=== PATIENT | female | born 1995 | race Two or more races ===

== ENCOUNTER 2016-05-09 11:20 | Emergency (ER) | payer OTHER ==
[2016-05-09 11:40] VITALS: RESP 18; TEMP 98; O2SAT 97
[2016-05-09 11:48] LABS: COLOR YELLOW; LEUKOCYTE ESTERASE,URINE NEGATIVE (NEGATIVE); NITRITE,URINE NEGATIVE (NEGATIVE); PH,URINE 7.5 (5.0-7.5)
[2016-05-09 13:15] LABS: % IMMATURE GRANULYOCYTES 0.5 % (0.0-1.1); ABSOLUTE IMMATURE GRANULOCYTES 0.05 10^3/uL (0.00-0.10); ADD DIFF? NO; ADD MORPH? NO; ADD SCAN? NO; ATYPICAL LYMPHOCYTE FLAG 10 (0-99); FRAGMENT RBC FLAG 0 (0-99); HEMATOCRIT 42.7 % (38.0-47.0); HEMOGLOBIN 15.2 g/dL (12.6-16.3); LEFT SHIFT FLG 0 (0-99); LIPEMIA HEMOLYSIS FLAG 90 (0-99); MEAN CELL HEMOGLOBIN 31.3 pg (27.9-34.1); MEAN CELL HEMOGLOBIN CONCENTR. 35.6 g/dL (32.4-36.7); MEAN PLATELET VOLUME 9.8 fL (8.7-11.7); PLATELET CLUMPS FLAG 10 (0-99); PLATELET COUNT 341 10^3/uL (150-400); RED BLOOD CELL COUNT 4.85 10^6/uL (4.18-5.33); RED CELL DISTRIBUTION WIDTH 12.7 % (11.5-15.2)
--- NOTE | 2016-05-09 13:18 | US ---
Transabdominal and Transvaginal Early Obstetric Ultrasound History: Pelvic pain for 8 to 10 days with no vaginal bleeding, positive test. LMP of 2015 with estimated gestational age by LMP of 6 weeks 0 days with EDC of January 02, 2017. Comparison: None available. Findings: There is an intrauterine gestational sac with a mean sac diameter of 9 mm, corresponding to an estimated gestational age of 5 weeks 4 days and EDC of January 05, 2017. A yolk sac is visible. A pole is not visible. The uterus measures 8.1 x 6.1 x 4.3 cm. The right ovary measures 2.4 x 1.9 x 2.9 cm and the left ovary measures 5.0 x 5.0 x 5.7 cm. There is a 4.5 x 3.5 x 5.0 cm cyst in the left ovary with a probable single thin internal septation. Normal ar terial blood flow is documented to both ovaries by Doppler ultrasound. There is trace free fluid. Impression: 1. Intrauterine gestational sac with mean sac diameter corresponding to an estimated gestational age of 5 weeks 4 days. 2. 5 cm left ovarian cyst with a single thin internal septation. This is almost certainly benign and can be followed at the time of the patient's subsequent OB ultrasounds. Findings discussed with Carla Feldman answering for Haylie Rosin today at 1313 hours.
[2016-05-09 13:28] LABS: ANION GAP 13 mEq/L (8-16); CALCIUM 10.4 mg/dL (8.5-10.4); CARBON DIOXIDE 20 mEq/l (22-31); CHLORIDE 108 mEq/L (97-110); CREATININE 0.4 mg/dL (0.6-1.0); GLOMERULAR FILTRATION RATE > 60; GLUCOSE 90 mg/dL (70-100); POTASSIUM 3.7 mEq/L (3.5-5.2); SODIUM 141 mEq/L (134-144)
--- NOTE | 2016-05-09 14:18 | UCPHY ---
H & P Patient Type: New Smoking Status: Never smoked Time Seen by Provider: 05/09/16 11:41 HPI/ROS: CHIEF COMPLAINT: Abdominal pain HISTORY OF PRESENT ILLNESS: 21-year-old female presents to urgent care by private vehicle complaining of lower abdominal pain for last 7-10 days. Patient states her last normal menstrual period was March 28, 2016. She does report some breast soreness. She has no chest pain or difficulty breathing. No pain in her upper or lower extremities. No URI symptoms. No reported trauma. She has not had any vaginal bleeding or spotting. Denies dysuria, urgency or frequency with urination. She has never been in the past. REVIEW OF SYSTEMS: Constitutional: No fever, no chills. Eyes: No double or blurry vision. ENT: No sore throat. Respiratory: No cough, no shortness of breath. Cardiac: No chest pain. Gastrointestinal: Abdominal pain as above. No vomiting or diarrhea. Genitourinary: No dysuria. Musculoskeletal: No neck or back pain. Skin: No rashes. Neurological: No headache. (Haylie Akers) Past Medical/Surgical History: Negative (Haylie Akers) Social History: and lives in [place] (Haylie Akers) Physical Exam: General Appearance: Alert, no distress. Afebrile. No apparent distress. at bedside. Eyes: Pupils equal and round. Extraocular motions are all intact. ENT: Mouth: Mucous membranes moist. Respiratory: No wheezing, rhonchi, or rales, lungs are clear to auscultation. Cardiovascular: Regular rate and rhythm. Gastrointestinal: Abdomen is soft and nontender, no masses, no rebound or guarding, bowel sounds normal. No CVA tenderness bilaterally. Genitourinary: Deferred Neurological: Alert and oriented x 3, cranial nerves II through XII grossly intact Skin: Warm and dry, no rashes. Musculoskeletal: Nontender to palpate along the cervical, thoracic or lumbar spine. Neck is supple. Extremities: Full range of motion and no peripheral edema. Psychiatric: Patient is oriented X 3, there is no agitation. (Haylie Akers) Constitutional: Initial Vital Signs Temperature (C) 36.6 C 05/09/16 11:38 Heart Rate 85 05/09/16 11:38 Respiratory Rate 18 05/09/16 11:38 Blood Pressure 112/62 05/09/16 11:38 O2 Sat (%) 97 05/09/16 11:38 O2 Delivery Mode Room Air Allergies/Adverse Reactions: No Known Allergies Allergy (Unverified 05/09/16 11:38) Home Medications: Medication Instructions Recorded NK [No Known Home Meds] 05/09/16 Medical Decision Making - Diagnostics Imaging: Pelvic ultrasound reveals 5 week 4 day gestational sac without evidence of pole. This was reported by Dr. Charles Angeles. (Haylie Akers) ED Course/Re-evaluation: 21-year-old female presents to Urgent Care with lower abdominal discomfort. She feels that the pain is actually improved some. She did not take a home test. Urine test was positive. Urinalysis reveals no signs of infection. Her CBC was within normal limits. Chemistries were normal. Her quantitative HCG was over 5600. Pelvic ultrasound reveals 5 week 4 day to station all sac without evidence of pole. The case was discussed with Dr. Carla Feldman, secondary supervising physician, who did not directly evaluate the patient but agrees with treatment and plan. Dr. Carla Feldman spoke with Dr. Abbey Doshi and the patient will have a repeat quantitative HCG on Saturday, in 2 days. She will schedule appointment with Dr. Abbey Doshi for follow-up. This was discussed with the patient and her at bedside who verbalized understanding and agreed. She was given strict instructions to return or go to the emergency department if she developed worsening abdominal pain, vaginal bleeding, if she felt faint, or if she felt worse in any way. (Haylie Akers) The patient wasevaluatedand managed by themidlevel provider. Idiscussed the patient's presentation and course with thephysicianassistantor nurse practitionerand agree with theevaluation. My co-signature indicates that I have reviewed this chart and I agree with the findings and plan of care as documented. I am the secondary supervisingphysician. 21 year old with positive test today. Quant of greater than 5000, no pole, only gestational sac on ultrasound. Suspect nonviable including blighted ovum, threatened miscarriage or ectopic. Patient made aware of all these concerns. Strict instructions regarding follow up given. (Carla Feldman) Differential Diagnosis: Including but not limited to urinary tract infection, pyelonephritis, intrauterine , ectopic , acute appendicitis (Haylie Akers) - Data Points Laboratory Results: Laboratory Results 05/09/16 13:10 05/09/16 13:10 Departure - Departure Disposition: Home, Routine, Self-Care Clinical Impression: Intrauterine , Abdominal pain Condition: Good Instructions: (ED), Acute Abdominal Pain (ED) Additional Instructions: Call to schedule follow-up appointment with ANDRZEJ Luna on-call. Follow up in the lab at [facility] by Saturday, in 2 days. Return or go to the emergency department if you developed increasing pain, vaginal bleeding, if you feel faint or like you're going to pass out, if you developed vomiting, or if you feel worse in any way. You should take vitamins as discussed. Do not drink alcohol or smoke cigarettes. Abdominal Pain: Return to the Emergency Department immediately for increasing pain, fever, vomiting, or if not completely better in 8-12 hours. Referrals: Abbey Doshi MD [Medical Doctor] - 1-2 days without fail (ANDRZEJ on-call) - PQRS PQRS Measurement: Not applicable (Haylie Akers)
[2016-05-09 14:29] VITALS: BP 122/62; PULSE 18
== END 2016-05-09 14:28 | disposition home or self-care (01) ==
LOC: CED 11:20
DX: Z34.01 Encounter for supervision of normal first pregnancy, first trimester (principal); R10.30 Lower abdominal pain, unspecified; N83.202 Unspecified ovarian cyst, left side; Z3A.01 Less than 8 weeks gestation of pregnancy
CPT/HCPCS: 80048-PO; 81003-PO; 81025-PO; 84702-PO; 85025-PO; G0463-PO

== ENCOUNTER 2017-01-17 17:58 | Inpatient (IN) | payer BC ==
[2017-01-17] MEDS ORDERED: EPSOM SALT 454 GM TP PRN (20:09)
[2017-01-17] MEDS ORDERED: OLIVE OIL 118 ML BTL MISC PRN (20:09)
[2017-01-17] MEDS ORDERED: OXYTOCIN 20 UNIT in LR 1,000 ML IV PRN (20:09)
[2017-01-17] MEDS ORDERED: LR 1,000 ML IV PRN (20:09)
[2017-01-17] MEDS ORDERED: TERBUTALINE SULFATE 1 MG/ML VIAL IV PRN (20:09)
[2017-01-17] MEDS ORDERED: LR 500 ML IV PRN (20:11)
[2017-01-17 20:30] LABS: % IMMATURE GRANULYOCYTES 0.8 % (0.0-1.1); ABSOLUTE IMMATURE GRANULOCYTES 0.09 10^3/uL (0.00-0.10); ADD DIFF? NO; ADD MORPH? NO; ADD SCAN? NO; ATYPICAL LYMPHOCYTE FLAG 0 (0-99); FRAGMENT RBC FLAG 0 (0-99); HEMATOCRIT 40.5 % (38.0-47.0); HEMOGLOBIN 13.9 g/dL (12.6-16.3); LEFT SHIFT FLG 0 (0-99); LIPEMIA HEMOLYSIS FLAG 90 (0-99); MEAN CELL HEMOGLOBIN 29.6 pg (27.9-34.1); MEAN CELL HEMOGLOBIN CONCENTR. 34.3 g/dL (32.4-36.7); MEAN CELL VOLUME 86.4 fL (81.5-99.8); MEAN PLATELET VOLUME 11.9 fL (8.7-11.7); PLATELET CLUMPS FLAG 0 (0-99); PLATELET COUNT 180 10^3/uL (150-400); RED BLOOD CELL COUNT 4.69 10^6/uL (4.18-5.33); RED CELL DISTRIBUTION WIDTH 14.4 % (11.5-15.2)
[2017-01-17] MEDS ORDERED: OXYTOCIN 30 UNIT in LR 500 ML IV SCH (20:30)
--- NOTE | 2017-01-17 20:31 | GHP ---
[f rep st] PREOP HISTORY AND PHYSICAL DATE OF ADMISSION: 01/17/2017 HISTORY OF PRESENT ILLNESS: This is a 21-year-old at 41- 0wks by 6-week ultrasound that presents to Labor and Delivery for post-dates induction of labor. She denies any contractions, leaking fluid, vaginal bleeding. PAST MEDICAL HISTORY: Noncontributory. PAST SURGICAL HISTORY: Denies any surgical history. SOCIAL HISTORY: She is . She denies any tobacco, alcohol, drug use. GYNECOLOGICAL HISTORY: She denies any history of abnormal Pap smears or procedures on her cervix. She denies any history of any STDs. OBSTETRICAL HISTORY: G1: Current . She started care with [facility] at 7 weeks. She has received regular care. Her is complicated by an abnormal 1-hour GTT with a normal 3-hour GTT. LABORATORY: O+, ABS negative. HIV nonreactive. RPR nonreactive. Hepatitis B surface antigen nonreactive. PAP NIL, GC/CT negative. MEDICATIONS: vitamins with DHA. ALLERGIES: No known drug allergies. REVIEW OF SYSTEMS: 10-point review of systems was reviewed and all are negative except pertinent information which was disclosed in the HPI. GENERAL: She denies any generalized fatigue. She reports overall feeling well. HEENT: Denies any headache, visual changes or sore throat. CARDIOVASCULAR: Denies any chest pain or palpitations. PULMONARY: Denies any shortness of breath, cough. GI: Denies any nausea, vomiting, diarrhea or constipation. : She denies any dysuria, vaginal bleeding, vaginal discharge. MUSCULOSKELETAL: Denies any edema in the lower extremities. SKIN: Denies any rashes or lesions. NEUROLOGIC: Denies any numbness, tingling or loss of consciousness. PSYCH: Denies any depression or anxiety. PHYSICAL EXAMINATION: VITAL SIGNS: Stable. GENERAL APPEARANCE: Alert and oriented x3. HEENT: Normocephalic and atraumatic. NECK: Supple. HEART: Regular rate and rhythm. No murmurs noted. LUNGS: Clear to auscultate bilaterally. No wheezes or rhonchi noted. ABDOMEN: Gravid, soft, nontender. PELVIC: Performed in the office. SVE 1/50/-2. EXTREMITIES: Negative for edema. Negative Homans sign. NEUROLOGIC: Grossly normal. ASSESSMENT: Category 1 heart rate tracing. TOCO: No contractions noted. ASSESSMENT: 1. 21-year-old at 41 -0wks by 6-week ultrasound. 2. PD IOL. 3. SARAVANAN 9cm, Amniotic fluid noted to have echogenic appearance. 4. Grade 3 placenta. 5. GBS negative. 6. Category 1 heart rate tracing. PLAN: 1. Admit to Labor and Delivery. 2. IV access. 3. Castillo bulb placement - will consider use of cytotec or pitocin PRN 4. Reassess p.r.n. 5. Anticipate . /[id number]/MODL MTDD
[2017-01-18] MEDS ORDERED: fentaNYL 2MCG/ML/BUP 0.1% RTU 100 ML BAG EP ONE (00:38)
[2017-01-18] MEDS ORDERED: PHENYLEPHRINE HCL 100 MCG/ML SYR ONE (00:39)
[2017-01-18] MEDS ORDERED: BUPIVACAINE 0.25% 30 ML SDV ONE (00:39)
[2017-01-18] MEDS ORDERED: fentaNYL 100 MCG/2 ML INJ ONE ×2 (00:39→13:30)
[2017-01-18] MEDS ORDERED: PHENYLEPHRINE HCL 100 MCG/ML SYR IVP PRN ×2 (02:03→13:57)
[2017-01-18] MEDS ORDERED: ONDANSETRON 4 MG/2 ML VIAL IVP PRN ×3 (02:03→13:57)
--- NOTE | 2017-01-18 02:08 | POSTANESTH ---
Post Anesthetic Evaluation Cardiovascular Status: Normal, Stable, Similar to Pre-Op Cond Respiratory Status: Normal, Stable, Similar to Pre-op Cond. Level of Consciousness/Mental Status: Can Participate in Eval, Alert and Oriented Pain Control: Adequate, Prn Tx Ordered Nausea/Vomiting Control: Adequate, Prn Tx Ordered Complications Possibly Related to Anesthesia: None Noted
--- NOTE | 2017-01-18 02:08 | PREANESOB ---
Obstetric Pre-Anesthesia Info - General Info Proposed Procedure: Labor and delivery (pitocin planned). : 1 Para: 0 WBD: 41 - Info Status: Postmature Monitors: External FHR Baseline (bpm): 130 FHR Pattern: Reassuring - Labor Status Cervical Dilation per last OB SVE: 3 Pitocin: Planned Indications for Labor Analgesia: Augmentation of Labor, Pain Control Labor Epidural: Proposed Anesthesia ROS: Negative. Allergies/Adverse Reactions: Allergy/AdvReac Type Severity Reaction Status Date / Time No Known Allergies Allergy Unverified 05/09/16 11:38 Home Medications: Medication Instructions Recorded NK [No Known Home Meds] 05/09/16 Visit Medications: Generic Name Dose Route Start Last Admin Trade Name Freq PRN Reason Stop Dose Admin Lactated Ringer's 1,000 mls @ 0 mls/hr 01/17/17 20:09 01/18/17 00:48 Lr IV 07/16/17 20:08 1,000 mls PRN PRN Administration SEE PROTOCOL CONDITIONS Protocol Per Protocol Oxytocin 20 unit/ Lactated 1,002 mls @ 150 mls/hr 01/17/17 20:09 Ringer's IV PRN PRN Post- bleeding Lactated Ringer's 500 mls @ 500 mls/hr 01/17/17 20:11 Lr IV PRN PRN Maternal Hypotension Oxytocin 30 unit/ Lactated 503 mls @ 0 mls/hr 01/17/17 20:30 01/18/17 01:34 Ringer's IV 07/16/17 20:29 503 mls CONT MORTEZA Administration Protocol As Directed Ibuprofen 600 mg 01/17/17 20:09 Motrin PO 07/16/17 20:08 Q6HRS PRN post , inflammation Magnesium Sulfate 454 gm 01/17/17 20:09 Epsom Salt TP 07/16/17 20:08 Q1H PRN perineal discomfort Felton Oil 118 ml 01/17/17 20:09 Sweet Oil MISC 07/16/17 20:08 ONCE PRN perineal massage Terbutaline Sulfate 0.25 mg 01/17/17 20:09 Brethine IV 07/16/17 20:08 ONCE PRN Tachysystole Discontinued Medications Generic Name Dose Route Start Last Admin Trade Name Freq PRN Reason Stop Dose Admin Bupivacaine HCl Confirm 01/18/17 00:39 Sensorcaine 0.25% Sdv Administered 01/18/17 00:40 Dose 30 ml .ROUTE .STK-MED ONE Fentanyl Confirm 01/18/17 00:39 Sublimaze Administered 01/18/17 00:40 Dose 100 mcg .ROUTE .STK-MED ONE Fentanyl/Bupivacaine HCl Confirm 01/18/17 00:38 Fentanyl/Bupivacaine/Ns 2 Mcg/Ml 0.1% (Premix Administered 01/18/17 00:39 Dose 100 ml EP .STK-MED ONE Phenylephrine HCl Confirm 01/18/17 00:39 Neosynephrine Administered 01/18/17 00:40 Dose 1,000 mcg .ROUTE .STK-MED ONE - Anesthesia History Response to Local Anesthetics: Normal Anesthesia & Operative History: No Prior Problems Family Anesthesia History: Negative - Social History Substance Use/Abuse: Denies - Focused Exam Blood Pressure: 114/60 Heart Rate: 75 Height/Weight (Nursing): Height 157.48 cm Weight 76.204 kg Physical Exam: Within normal limits. ASA Status: II Labs: 01/17/17 20:00 Patient ABO/Rh O POSITIVE 01/17/17 20:00 - Plan Anesthetic Plan: CAMMY Consent Signed and on Chart: Yes Patient/Guardian Understands and Agrees to Plan: Yes Urgent/Emergent Case: Aaliyah [place] completed preop but documented later for safe timely pt care
[2017-01-18] MEDS ORDERED: LIDOCAINE 1% 300 MG/30 ML SDV ONE (02:10)
[2017-01-18] MEDS ORDERED: OXYTOCIN 10 UNIT/ML VIAL ONE (02:11)
[2017-01-18] MEDS ORDERED: AMMONIA AROMATIC 1 EACH AMP IH ONE (02:11)
[2017-01-18] MEDS ORDERED: TERBUTALINE SULFATE 1 MG/ML VIAL ONE (02:11)
[2017-01-18] MEDS ORDERED: OLIVE OIL 118 ML BTL ONE (02:11)
[2017-01-18] MEDS ORDERED: MISOPROSTOL 200 MCG TAB ONE (02:12)
[2017-01-18] MEDS ORDERED: LR 500 ML IV SCH (02:30)
[2017-01-18] MEDS ORDERED: fentaNYL 2MCG/ML/BUP 0.1% RTU 100 ML EP SCH (02:30)
--- NOTE | 2017-01-18 11:04 | OBPROG ---
Labor Progress Note Assessment/Plan: Assessment: 21 yo G1 @ 41.1 with IOL for postdates. decelerations resolved with resuscitation measures. Plan: Continue expectant management, consider adding Pitocin (again) if labor stalls. 01/18/17 11:00 Subjective/Intrapartum Course: 01/18/17 11:02 Called to room to evaluate patient after heart rate decels noted by RN. Decels had resolved when I entered room. O2 mask was on, pitocin was turned off , and patient was turned to right side. Patient had no subjective complaints. She is comfortable with epidural and is reported some pelvic pressure. Objective: 01/17/17 20:00 Patient ABO/Rh O POSITIVE 01/17/17 20:00 Temp Pulse Resp BP Pulse Ox 75 114/60 01/18/17 02:07 01/18/17 02:07 Pelvic exam performed. No obvious meconium on AROM. - SVE Dilation (cm): 7 Effacement (%): 100 Station: +1 Membranes: AROM Amniotic Fluid Color: Clear Oxytocin Orders Assessment - Pre-Induction/Augmentation Assessment Gestational Age: 41 week(s) and 0 day(s) ICD10 Worksheet Patient Problems: Problems Problem Status Onset Elective induction of labor planned Acute - ICD10 Problem Qualifiers (1) Elective induction of labor planned
[2017-01-18] MEDS ORDERED: ceFAZolin 2 GM/DEXTROSE 100 ML IV ONE (13:07)
[2017-01-18] MEDS ORDERED: LR 500 ML IV ONE (13:07)
[2017-01-18] MEDS ORDERED: CEFAZOLIN 2 GM/DEXTROSE/100 ML BAG IV ONE (13:10)
[2017-01-18] MEDS ORDERED: CITRIC ACID/SODIUM CITRATE 30 ML UDCUP ONE (13:10)
--- NOTE | 2017-01-18 13:10 | OBPROG ---
Labor Progress Note Assessment/Plan: Assessment: 21 yo G1 @ 41.1 with IOL for postdates. decelerations resolved with resuscitation measures. Plan: Continue expectant management, consider adding Pitocin (again) if labor stalls. 01/18/17 11:00 01/18/17 13:07 heart rate tracing continues to show recurrent late decelerations. Attempts at pushing past anterior lip of cervix were unsuccessful in resolving lip. I reviewed risk, benefits and alternative management plans (including delivery). I recommended delivery for intolerance of labor, as FHRT is worsening despite resuscitative measures. Patient gave written and verbal consent to perform procedure. Subjective/Intrapartum Course: 01/18/17 11:02 Called to room to evaluate patient after heart rate decels noted by RN. Decels had resolved when I entered room. O2 mask was on, pitocin was turned off , and patient was turned to right side. Patient had no subjective complaints. She is comfortable with epidural and is reported some pelvic pressure. Objective: 01/17/17 20:00 Patient ABO/Rh O POSITIVE 01/17/17 20:00 Temp Pulse Resp BP Pulse Ox 75 114/60 01/18/17 02:07 01/18/17 02:07 - SVE Dilation (cm): 9 Effacement (%): 100 Station: +2 Membranes: AROM Amniotic Fluid Color: Clear - Contraction Pattern Assessment Current Contraction Pattern: Regular Oxytocin Orders Assessment - Pre-Induction/Augmentation Assessment Gestational Age: 41 week(s) and 0 day(s) ICD10 Worksheet Patient Problems: Problems Problem Status Onset Elective induction of labor planned Acute - ICD10 Problem Qualifiers (1) Elective induction of labor planned
[2017-01-18] MEDS ORDERED: LR 1,000 ML IV SCH (13:30)
[2017-01-18] MEDS ORDERED: OXYTOCIN 100 UNITS/10 ML VIAL ONE (13:31)
[2017-01-18] MEDS ORDERED: ONDANSETRON 4 MG/2 ML VIAL ONE (13:31)
[2017-01-18] MEDS ORDERED: CITRIC ACID/SODIUM CITRATE 30 ML UDCUP PO ONE (13:56)
[2017-01-18] MEDS ORDERED: NALOXONE HCL 0.4 MG/ML INJ IVP PRN ×2 (13:57)
[2017-01-18] MEDS ORDERED: MEPERIDINE 25 MG/ML SYR IVP PRN (13:57)
[2017-01-18] MEDS ORDERED: METOCLOPRAMIDE 10 MG/2 ML VIAL IVP PRN ×2 (13:57)
--- NOTE | 2017-01-18 14:09 | PDANEPAE ---
ANE History of Present Illness intolerance to labor ANE Past Medical History - Cardiovascular History Hx Hypertension: No Hx Arrhythmias: No Hx Chest Pain: No Hx Coronary Artery / Peripheral Vascular Disease: No Hx CHF / Valvular Disease: No Hx Palpitations: No - Pulmonary History Hx COPD: No Hx Asthma/Reactive Airway Disease: No Hx Recent Upper Respiratory Infection: No Hx Oxygen in Use at Home: No Hx Sleep Apnea: No - Surgical History Prior Surgeries: none ANE Review of Systems Review of Systems: - Exercise capacity METS (RN): 4 METS ANE Patient History - Allergies Allergies/Adverse Reactions: No Known Allergies Allergy (Unverified 05/09/16 11:38) - Home Medications Home Medications: NK [No Known Home Meds] 05/09/16 [Last Taken Unknown] - Smoking Hx Smoking Status: Never smoked Marijuana use: No - Alcohol Use Alcohol Use: Rarely - Family Anes Hx Family Anes Hx: neg - N/A ANE Labs/Vital Signs - Labs Result Diagrams: 01/17/17 20:00 - Vital Signs Blood Pressure: 114/60 Heart Rate: 75 Height: 157.48 cm Weight: 76.204 kg ANE Physical Exam - Airway Neck exam: FROM Mallampati Score: Class 1 Mouth exam: normal dental/mouth exam - Pulmonary Pulmonary: no respiratory distress, no rales or rhonchi, clear to auscultation - ASA Status ASA Status: II, E ANE Anesthesia Plan Anesthesia Plan: epidural Total IV Anesthesia: No
[2017-01-18] MEDS ORDERED: OXYCODONE/APAP 5/325 TAB PO PRN (14:50)
[2017-01-18] MEDS ORDERED: SIMETHICONE 80 MG TAB CHEW PO PRN (14:50)
[2017-01-18] MEDS ORDERED: ACETAMINOPHEN 325 MG TAB PO PRN (14:50)
[2017-01-18] MEDS ORDERED: PROMETHAZINE HCL 25 MG/ML INJ IVP PRN (14:50)
[2017-01-18] MEDS ORDERED: OXYTOCIN/RINGERS LACTATE 1,000 ML IV SCH (15:00)
--- NOTE | 2017-01-18 15:10 | POSTANESTH ---
Post Anesthetic Evaluation Cardiovascular Status: Normal, Stable Respiratory Status: Normal, Stable Level of Consciousness/Mental Status: Can Participate in Eval Pain Control: Adequate, Prn Tx Ordered Nausea/Vomiting Control: Adequate, Prn Tx Ordered Complications Possibly Related to Anesthesia: None Noted
[2017-01-18] MEDS ORDERED: OXYTOCIN 20 UNIT in LR 1,000 ML IV SCH (16:00)
[2017-01-18] MEDS: KETOROLAC 30 MG/1 ML SDV IVP PRN (18:06)
[2017-01-18 18:29] LABS: HEMATOCRIT 35.6 % (38.0-47.0); HEMOGLOBIN 11.9 g/dL (12.6-16.3)
--- NOTE | 2017-01-18 19:23 | POSTOPPROG ---
Post Op Note Date of Operation: 01/18/17 Surgeon: Da Roque Emt P: Joleen Newton Anesthesiologist: Tello Lozano Anesthesia: Epidural Pre-op Diagnosis: 41 weeks, IOL, Intolerance to Labor Post-op Diagnosis: Same Indication: Intolerance of Labor Procedure: Delivery Findings: VMI, normal pelvis Inf/Abcess present in the surg proc area at time of surgery?: No Depth: Organ Space EBL: 500-1000 Total fluids administered: 1600 Complications: None
--- NOTE | 2017-01-18 19:30 | SUROPNOTE ---
[facility] Operative Report - Surgery OPERATIVE REPORT DATE OF OPERATION: 01/18/2017 SURGEON: Boni Roque MD LOCKER OPERATOR: CLAIRE Rogers ANESTHESIA: Epidural ANESTHESIOLOGIST: Tello Lozano PREOPERATIVE DIAGNOSIS: 41+ weeks gestation, Grade 3 placenta POSTOPERATIVE DIAGNOSIS: Same PROCEDURE PERFORMED: delivery FINDINGS: Viable male , Apgars 8 @ 1 min, 9 @ 5 min, Wt: 3260 grams SPECIMENS: None EBL: 800 mL Fluids: 1600 mL UOP: 300 mL (clear urine) INDICATIONS: 21 yo [place] G1 @ 41.1 weeks gestation admitted for IOL for postdates. Recurrent late heart rate decelerations occurred during active labor. Patient dilated to 9.5 cm (anterior lip). Decelerations continued. Attempts to push past and reduce anterior lip were unsuccessful. Discussion regarding intolerance of labor and need for quick delivery were had. After reviewing risks, benefits, and alternative delivery options ( delivery) patient consented to delivery. DESCRIPTION OF PROCEDURE: After appropriate consent was obtained patient was taken to OR. Epidural anesthesia was redosed and found to be adequate. 2 grams Cefzol given IV. Patient was prepped and draped according to usual sterile fashion. Time out was performed. A Pfannenstiel skin incision was performed with scalpel and subcutaneous tissue was incised down to rectus abdominis fascia. Fascia was nicked in midline and incision extended bilaterally with curved Bailey scissors. Rectus muscles were incised off inferior and superior fascial segments and then in midline. Peritoneal cavity was entered bluntly. Bladder blade was placed to retract bladder from lower uterine segment. Bladder flap was created with Metzenbaum scissors and pick-ups. Bladder blade replaced to reflect bladder flap. Transverse lower uterine incision was made with scalpel. was delivered vertex through hysterotomy. Shoulders and body also delivered without difficulty. Cord was clamped and cut and infant was handed to resuscitation team. Cord blood was obtained. Placenta was manually extracted from intrauterine cavity and cavity was curetted with dry lap sponge after uterus was exteriorized. Hysterotomy was reapproximated with two 0 vicryl stitches; the first running and locking and the second a running, imbricating stitch. Gutters were cleared of debris and irrigated with warm saline. Uterus was placed back into anatomic position. Thorough inspection of pelvis and peritoneal cavity revealed normal tubes and ovaries and no additional bleeding from hysterotomy or other sites. Good hemostasis noted. Fascial incision was reapproximated with a single running 0-vicryl suture. Skin was closed with a subcuticular 4-0 monocryl stitch, steri-strips and bandaged appropriately. At the end of procedure sponge, lap and needle count was correct x 2. Patient tolerated procedure well and she was taken to PACU awake and in stable condition.
[2017-01-19] MEDS: KETOROLAC 30 MG/1 ML SDV IVP PRN ×3 (00:10→12:35)
--- NOTE | 2017-01-19 11:26 | SOAPPROG ---
SOAP Progress Note Assessment/Plan: Assessment: POD #1 s/p C/S performed under existing lumbar epidural. Epidural morphine administered for extended post op pain control. Pt doing very well. Plan: continue current medical mgmt 01/19/17 11:23 Subjective: pt. denies N/V, pruritus, back pain, motor weakness, sensory loss Objective: Vital Signs Temp Pulse Resp BP Pulse Ox 37.2 C 87 16 137/88 H 97 01/19/17 08:00 01/19/17 08:00 01/19/17 08:00 01/19/17 08:00 01/19/17 08:00 Laboratory Results 01/19/17 02:15 01/18/17 01/19/17 01/20/17 05:59 05:59 05:59 Intake Total 6500 Output Total 4550 Balance 1950 Physical Exam - Physical Exam General Appearance: WD/WN, alert, no apparent distress Extremities: normal range of motion Neuro/Psych: no motor/sensory deficits ICD10 Worksheet Patient Problems: Problems Problem Status Onset Elective induction of labor planned Acute
[2017-01-19] MEDS: HYDROCODONE/APAP 5/325 TAB PO PRN ×3 (11:34→20:45)
--- NOTE | 2017-01-19 12:10 | OBPP ---
Progress Note Assessment/Plan: Assessment: 1) s/p PCS secondary to intolerance to labor POD #1 - pt is stable 2) Anemia - pt is asymptomatic Plan: Continue routine post-op care Encourage ambulation Fox to be removed in afternoon Pt may shower after dressing removed this afternoon Plan for d/c in 24-48 hrs 01/19/17 12:10 Subjective/ Course: 01/19/17 12:11 Pt seen and examined. Doing well, no complaints. She was up to the bathroom and now she feels sore, she just took po meds. Pt is OOB, jessica regular diet, fox in place, passing flatus. Denies any f/c/n/v/CP or SOB. BF well so far. Objective: 01/19/17 02:15 Patient ABO/Rh O POSITIVE 01/17/17 20:00 Temp Pulse Resp BP Pulse Ox 37.2 C 87 16 137/88 H 97 01/19/17 08:00 01/19/17 08:00 01/19/17 08:00 01/19/17 08:00 01/19/17 08:00 Uterine Position/Fundal Height: Umbilicus -2 Uterine Tone: Firm Physical Exam - Physical Exam Respiratory: lungs clear, normal breath sounds Cardiac/Chest: regular rate, rhythm Abdomen: normal bowel sounds, non-tender, soft, flatus (+), incision (C/D/I with dressing in place), dressing (C/D/I) Extremities: non-tender, normal inspection Skin: normal color, warm/dry Neuro/Psych: alert, normal mood/affect, oriented x 3
[2017-01-19] MEDS: IBUPROFEN 600 MG TAB PO PRN (18:49)
[2017-01-19] MEDS: DOCUSATE SODIUM 100 MG CAP PO PRN (20:45)
[2017-01-20] MEDS: HYDROCODONE/APAP 5/325 TAB PO PRN ×5 (00:57→19:37)
[2017-01-20] MEDS: IBUPROFEN 600 MG TAB PO PRN ×4 (00:58→21:20)
[2017-01-20] MEDS: DOCUSATE SODIUM 100 MG CAP PO PRN ×2 (07:52→21:20)
--- NOTE | 2017-01-20 13:36 | OBPP ---
Progress Note Assessment/Plan: Assessment: 21 yo G1 @ 41.1 with IOL for postdates. decelerations resolved with resuscitation measures. Plan: Continue expectant management, consider adding Pitocin (again) if labor stalls. 01/18/17 11:00 01/18/17 13:07 heart rate tracing continues to show recurrent late decelerations. Attempts at pushing past anterior lip of cervix were unsuccessful in resolving lip. I reviewed risk, benefits and alternative management plans (including delivery). I recommended delivery for intolerance of labor, as FHRT is worsening despite resuscitative measures. Patient gave written and verbal consent to perform procedure. 01/20/17 13:31 A/P: 21 yo POD#2 s/p 1CD for NRFHRT during IOL for postdates doing well. 1. Routine post-op care. 2. Advance diet/activity as tolerated. 3. Anticipate DC home tomorrow. Subjective/ Course: 01/19/17 12:11 Pt seen and examined. Doing well, no complaints. She was up to the bathroom and now she feels sore, she just took po meds. Pt is OOB, jessica regular diet, fox in place, passing flatus. Denies any f/c/n/v/CP or SOB. BF well so far. 01/20/17 13:33 Patient is doing well. She is ambulating. She has not yet passed flatus since OR. She states pain is controlled with PO meds. She reports minimal lochia. Objective: 01/19/17 02:15 Patient ABO/Rh O POSITIVE 01/17/17 20:00 Temp Pulse Resp BP Pulse Ox 36.5 C 76 18 133/93 H 96 01/20/17 05:13 01/20/17 05:13 01/20/17 05:13 01/20/17 05:13 01/20/17 05:13 Gen: Alert, awake. and oriented x 3 Heart: RRR Lungs: Clear Abdomen: soft, appropriately tender, bowel sounds present, incision is C/D/I Extremities: without excessive BLE edema Uterine Position/Fundal Height: Umbilicus -2 Uterine Tone: Firm
[2017-01-21] MEDS: IBUPROFEN 600 MG TAB PO PRN ×4 (05:42→23:43)
[2017-01-21 06:23] LABS: % IMMATURE GRANULYOCYTES 0.5 % (0.0-1.1); ABSOLUTE IMMATURE GRANULOCYTES 0.06 10^3/uL (0.00-0.10); ADD DIFF? NO; ADD MORPH? NO; ADD SCAN? NO; ATYPICAL LYMPHOCYTE FLAG 0 (0-99); FRAGMENT RBC FLAG 0 (0-99); HEMATOCRIT 30.3 % (38.0-47.0); HEMOGLOBIN 10.2 g/dL (12.6-16.3); LEFT SHIFT FLG 0 (0-99); LIPEMIA HEMOLYSIS FLAG 80 (0-99); MEAN CELL HEMOGLOBIN 29.7 pg (27.9-34.1); MEAN CELL HEMOGLOBIN CONCENTR. 33.7 g/dL (32.4-36.7); MEAN CELL VOLUME 88.3 fL (81.5-99.8); PLATELET CLUMPS FLAG 0 (0-99); PLATELET COUNT 172 10^3/uL (150-400); RED BLOOD CELL COUNT 3.43 10^6/uL (4.18-5.33); RED CELL DISTRIBUTION WIDTH 14.5 % (11.5-15.2)
[2017-01-21 06:38] LABS: ALANINE AMINOTRANSFERASE 32 IU/L (9-52); ASPARTATE AMINOTRANSFERASE 29 IU/L (14-46); BILIRUBIN,TOTAL 0.5 mg/dL (0.1-1.4); BILIRUBIN-CONJUGATED 0.3 mg/dL (0.0-0.5); BILIRUBIN-UNCONJUGATED 0.2 mg/dL (0.0-1.1); CREATININE 0.5 mg/dL (0.6-1.0); GLOMERULAR FILTRATION RATE > 60; LACTATE DEHYDROGENASE 421 IU/L (313-618); URIC ACID 5.9 mg/dL (2.5-6.8)
[2017-01-21] MEDS: HYDROCODONE/APAP 5/325 TAB PO PRN ×5 (08:20→20:53)
[2017-01-21] MEDS: DOCUSATE SODIUM 100 MG CAP PO PRN ×2 (08:20→20:54)
--- NOTE | 2017-01-21 09:53 | OBPP ---
Progress Note Assessment/Plan: Assessment: 1) s/p PCS secondary to intolerance to labor POD #3 - pt is stable 2) Anemia - pt is asymptomatic Plan: Continue routine post-op care Encourage ambulation Will have RN give oral meds ATC; cont heating pad prn. Will cont to monitor BPs. Plan for d/c home in am 01/2201/21/17 09:53 Subjective/ Course: 01/19/17 12:11 Pt seen and examined. Doing well, no complaints. She was up to the bathroom and now she feels sore, she just took po meds. Pt is OOB, jessica regular diet, fox in place, passing flatus. Denies any f/c/n/v/CP or SOB. BF well so far. 01/20/17 13:33 Patient is doing well. She is ambulating. She has not yet passed flatus since OR. She states pain is controlled with PO meds. She reports minimal lochia. 01/21/17 09:51 Pt seen and examined. She is having pain 5-6/10. She has pain in low back and shoulders. Did not get pain meds throughout the night. Just received [place] x2 and Ibuprofen. She is using a heating pad. She is OOB, jessica regular diet, voiding and passing flatus, no BM. Mod lochia. BF is going better. Baby boy is under bili blanket. BPs 130-80/s - pt is asymptomatic. Objective: 01/21/17 06:06 01/21/17 06:06 Patient ABO/Rh O POSITIVE 01/17/17 20:00 Uric Acid 5.9 mg/dL (2.5-6.8) 01/21/17 06:06 Total Bilirubin 0.5 mg/dL (0.1-1.4) 01/21/17 06:06 Conjugated Bilirubin 0.3 mg/dL (0.0-0.5) 01/21/17 06:06 Unconjugated Bilirubin 0.2 mg/dL (0.0-1.1) 01/21/17 06:06 AST 29 IU/L (14-46) 01/21/17 06:06 ALT 32 IU/L (9-52) 01/21/17 06:06 Lactate Dehydrogenase 421 IU/L (313-618) 01/21/17 06:06 Temp Pulse Resp BP Pulse Ox 36.8 C 75 17 131/84 H 99 01/20/17 20:12 01/20/17 20:12 01/20/17 20:12 01/20/17 20:12 01/20/17 20:12 Uterine Position/Fundal Height: Umbilicus -2 Uterine Tone: Firm Physical Exam - Physical Exam Respiratory: lungs clear, normal breath sounds Cardiac/Chest: regular rate, rhythm Abdomen: normal bowel sounds, non-tender, soft, flatus (+), incision (C/D/I with steri strips) Extremities: non-tender, normal inspection Skin: normal color, warm/dry Neuro/Psych: alert, normal mood/affect, oriented x 3
[2017-01-22] MEDS: HYDROCODONE/APAP 5/325 TAB PO PRN ×4 (01:04→13:02)
[2017-01-22] MEDS: IBUPROFEN 600 MG TAB PO PRN ×2 (06:30→13:02)
[2017-01-22] MEDS: DOCUSATE SODIUM 100 MG CAP PO PRN (08:48)
[2017-01-22 08:54] VITALS: BP 154/91; PULSE 81
[2017-01-22 09:12] VITALS: RESP 18; TEMP 98.6; O2SAT 98
--- NOTE | 2017-01-22 10:28 | OBPP ---
Progress Note Assessment/Plan: Assessment: well nipples intact minimal tenderness pain well managed elevated bp denies PIH symptoms ff@u scant rubra lochia + voiding + passing gas incision well approximated no ss of infection Plan:discharge to home with instructions discussed need for fu 2-3 days 2 weeks 4 weeks and 6 weeks, pericare, , bleeding patter, ss infection, pericare, incision care, mobility, rest, PIH symptoms, no driving x 2 weeks, pain management, iron, pnv verbalized understanding for POC 01/22/17 10:28 Subjective/ Course: 01/19/17 12:11 Pt seen and examined. Doing well, no complaints. She was up to the bathroom and now she feels sore, she just took po meds. Pt is OOB, jessica regular diet, fox in place, passing flatus. Denies any f/c/n/v/CP or SOB. BF well so far. 01/20/17 13:33 Patient is doing well. She is ambulating. She has not yet passed flatus since OR. She states pain is controlled with PO meds. She reports minimal lochia. 01/21/17 09:51 Pt seen and examined. She is having pain 5-6/10. She has pain in low back and shoulders. Did not get pain meds throughout the night. Just received [place] x2 and Ibuprofen. She is using a heating pad. She is OOB, jessica regular diet, voiding and passing flatus, no BM. Mod lochia. BF is going better. Baby boy is under bili blanket. BPs 130-80/s - pt is asymptomatic. 01/22/17 10:24 Doing well denies difficulties. Pain well managed. Occasional elevated bp denies PIH symptoms. Pain in low back and lower abdomen with regular pain medication does well with ambulation. + gas, + voiding. Doing well with . Objective: 01/21/17 06:06 01/21/17 06:06 Patient ABO/Rh O POSITIVE 01/17/17 20:00 Uric Acid 5.9 mg/dL (2.5-6.8) 01/21/17 06:06 Total Bilirubin 0.5 mg/dL (0.1-1.4) 01/21/17 06:06 Conjugated Bilirubin 0.3 mg/dL (0.0-0.5) 01/21/17 06:06 Unconjugated Bilirubin 0.2 mg/dL (0.0-1.1) 01/21/17 06:06 AST 29 IU/L (14-46) 01/21/17 06:06 ALT 32 IU/L (9-52) 01/21/17 06:06 Lactate Dehydrogenase 421 IU/L (313-618) 01/21/17 06:06 Temp Pulse Resp BP Pulse Ox 37.0 C 81 18 154/91 H 98 01/22/17 08:15 01/22/17 08:53 01/22/17 08:15 01/22/17 08:53 01/22/17 08:15 Uterine Position/Fundal Height: At Umbilicus Uterine Tone: Firm Physical Exam - Physical Exam General Appearance: WD/WN, alert, no apparent distress Respiratory: chest non-tender, lungs clear, normal breath sounds Cardiac/Chest: regular rate, rhythm Abdomen: normal bowel sounds, incision (well approximated , ) ss of infection) Extremities: normal range of motion, Azul's sign (negative bilaterally) DTR- Lower Extremities: Knee (R): 1+, Knee (L): 1+ (no clonus) Skin: normal color, warm/dry Neuro/Psych: no motor/sensory deficits, alert, normal mood/affect, oriented x 3
--- NOTE | 2017-01-22 10:43 | OBGCSDC ---
General Delivery Information - General Info : 1 Para: 1 Abortions: 0 L&D Analgesia/Anesthesia Type: Epidural Admission Date: 01/17/17 Labs: Patient ABO/Rh O POSITIVE 01/17/17 20:00 Hct 30.3 % (38.0-47.0) L 01/21/17 06:06 - Hospital Course Intrapartum: 01/18/17 11:02 Called to room to evaluate patient after heart rate decels noted by RN. Decels had resolved when I entered room. O2 mask was on, pitocin was turned off , and patient was turned to right side. Patient had no subjective complaints. She is comfortable with epidural and is reported some pelvic pressure. : 01/19/17 12:11 Pt seen and examined. Doing well, no complaints. She was up to the bathroom and now she feels sore, she just took po meds. Pt is OOB, jessica regular diet, fox in place, passing flatus. Denies any f/c/n/v/CP or SOB. BF well so far. 01/20/17 13:33 Patient is doing well. She is ambulating. She has not yet passed flatus since OR. She states pain is controlled with PO meds. She reports minimal lochia. 01/21/17 09:51 Pt seen and examined. She is having pain 5-6/10. She has pain in low back and shoulders. Did not get pain meds throughout the night. Just received [place] x2 and Ibuprofen. She is using a heating pad. She is OOB, jessica regular diet, voiding and passing flatus, no BM. Mod lochia. BF is going better. Baby boy is under bili blanket. BPs 130-80/s - pt is asymptomatic. 01/22/17 10:24 Doing well denies difficulties. Pain well managed. Occasional elevated bp denies PIH symptoms. Pain in low back and lower abdomen with regular pain medication does well with ambulation. + gas, + voiding. Doing well with . Vaginal - Diagnosis Amniotic Fluid Color: Clear - Delivery Providers Surgeon: Da Roque Data Yost Delivery Date: 01/18/17 Delivery Time: 13:59 KATHERINE: 01/10/17 Gestational Age: 41 week(s) and 5 day(s) Sex of Infant: Male Weight (gm): 3260 kg Score (1 Min): 8 Score (5 Min): 9 Discharge Information - Discharge Information Prescriptions: Hydrocodone/APAP 5/325 [[place] 5/325 (*)] 1 - 2 tab PO Q4HRS PRN #30 tab PRN Reason: Pain, Moderate Ibuprofen [Motrin (*)] 600 mg PO Q6HRS PRN #30 tab PRN Reason: Inflammation Iron Polysacch/Iron Heme Polyp [Bifera] 28 mg PO BID #90 tab Condition: Good
[2017-01-22] MEDS ORDERED: IRON POLYSAC/IRON HEME 28 MG TAB PO SCH (10:45)
== END 2017-01-22 13:15 | disposition home or self-care (01) | DRG 766 ==
LOC: FLD 17:58 → FOB 01-18 16:59
PROVIDERS: ADMIT Advanced Practice Midwife; ATTEND Advanced Practice Midwife
PROC: 0U7C7DZ Dilation of Cervix with Intraluminal Device, Via Natural or Artificial Opening (ICD-10-PCS; 2017-01-17)
PROC: 10907ZC Drainage of Amniotic Fluid, Therapeutic from Products of Conception, Via Natural or Artificial Opening (ICD-10-PCS; principal; 2017-01-18)
PROC: 10D00Z1 Extraction of Products of Conception, Low, Open Approach (ICD-10-PCS; principal; 2017-01-18)
PROC: 3E033VJ Introduction of Other Hormone into Peripheral Vein, Percutaneous Approach (ICD-10-PCS; principal; 2017-01-18)
DX: O76 Abnormality in fetal heart rate and rhythm complicating labor and delivery (principal); O48.0 Post-term pregnancy; Z3A.41 41 weeks gestation of pregnancy; Z37.0 Single live birth
CPT/HCPCS: J0690; J1885; J2370; J2405; J2550; J2590; J3010; J3105

== ENCOUNTER → 2017-02-01 | Outpatient (CLI) | payer BC | LOC: FLACT 11:32 | PROVIDERS: ATTEND Obstetrics & Gynecology Gynecology | DX: Z39.1 Encounter for care and examination of lactating mother (principal) | CPT/HCPCS: G0463 ==